=== PATIENT | male | born 1955 | race African-American/Black ===

== ENCOUNTER 2016-10-08 18:59 | Emergency (ER) | payer OTHER ==
[2016-10-08 19:13] VITALS: BP 157/066
--- NOTE | 2016-10-08 19:26 | PROVIDER DOCUMENTATION ---
HPI-EENT General - General Chief Complaint: Eye Complaint Stated Complaint: PINK EYE Time Seen by Provider: 10/08/16 19:15 Source: patient Allergies/Adverse Reactions: Patient Allergies Allergy/AdvReac Type Severity Reaction Status Date / Time No Known Allergies Allergy Verified 04/30/14 07:42 Home Medications: Home Medication List Medication Instructions Recorded Confirmed Last Taken Type Glipizide [Glipizide Xl] 2.5 mg PO DAILY 07/07/12 04/30/14 08/28/13 09:30 History 11 Hydralazine [Apresoline] 100 mg PO BID 07/07/12 04/30/14 08/28/13 18:30 History 1 Metformin [Glucophage] 1,000 mg PO BID 07/07/12 04/30/14 08/28/13 18:30 History 1 Clopidogrel [Plavix] 75 mg PO DAILY #0 tablet 12/03/12 04/30/14 08/20/13 09:30 Rx 1 Amlodipine/Valsartan [Exforge 1 each PO DAILY 08/19/13 04/30/14 08/28/13 09:30 History 10/320 mg Tablet] 1 Citalopram [Celexa] 20 mg PO DAILY 08/19/13 04/30/14 08/28/13 09:30 History 1 LISINOpril [Prinivil] 10 mg PO DAILY 08/19/13 04/30/14 08/28/13 09:30 History 1 PRAVAstatin [Pravachol] 40 mg PO DAILY 04/30/14 04/30/14 Unknown History Tramadol [Ultram] 50 mg PO Q8HR #20 tablet 08/31/15 Unknown Rx Amoxicillin [Amoxil] 500 mg PO BID #20 capsule 10/08/16 Unknown Rx Neomycin/Polymyxin/Hc Oph Susp 2 drop BOTH EYES TID #1 bottle 10/08/16 Unknown Rx [Cortisporin Oph Susp] - History of Present Illness-EENT General Nature of Presenting Problem: 61 y/o AAM c/o discharge from bilateral eyes for the past 2 days. Denies changes in vision or trauma, woke up with eyes matted shut. dnies pain in the eye. Has also had a sore throat and sinus pain for 2 days. Denies fevers. Eye surgery in Aug 2014 where he had his eye lid muscles tightened due to the eye lashes flipping inward towards the globe, no complications. EENT Location: reports: eye (R), eye (L) Quality of Pain: reports: none Onset/Duration: reports: 2 days ago Timing: reports: still present Prearrival Treatment: Initiated no prearrival treatment Associated Symptoms: reports: nasal congestion/drainage. denies: change in hearing, cough, drooling, ear drainage, facial pain/swelling, fever, malaise, poor fluid intake, poor solids intake, sinus infection, sore throat, tooth pain , voice change Similar Symptoms Previously?: No Recently seen or treated by another doctor?: No Review of Systems - Adult - REVIEW OF SYSTEMS - ADULT Constitutional: reports: no symptoms reported. denies: chills, fever, fatique Eyes: reports: see HPI, discharge, redness. denies: decreased vision, blurred vision, double vision, eye pain Ears, Nose, Mouth & Throat: reports: no symptoms reported. denies: ear pain, nose pain, throat pain Cardiovascular: reports: no symptoms reported. denies: chest pain Respiratory: reports: no symptoms reported. denies: cough, shortness of breath , wheezing Gastrointestinal: reports: no symptoms reported. denies: abdominal pain, diarrhea, nausea Genitourinary: reports: no symptoms reported Musculoskeletal: reports: no symptoms reported. denies: back pain Integumentary: reports: no symptoms reported. denies: rash Neurological: reports: no symptoms reported. denies: headache/migraines Psychiatric: reports: no symptoms reported Endocrine: reports: no symptoms reported Hematologic/Lymphatic: reports: no symptoms reported Allergic/Immunologic: reports: no symptoms reported All Other Systems: Reviewed and Negative Past History - Adult - PAST MEDICAL HISTORY-ADULT Review of Records: reports: Old Records Reviewed, Nursing Assessment Review, Medications Reviewed, Social history reviewed & non-contributory. Major Childhood Illnesses: reports: denies history Cardiovascular: reports: cardiac disease, HTN, hyperlipidemia Respiratory: reports: other (sleep apnea) Gastrointestinal: reports: denies history Obstetrical/Gynecological: reports: denies history Genitourinary: reports: denies history Musculoskeletal: reports: denies history Neurological: reports: CVA Psychiatric: reports: denies history Endocrine/Immune: reports: Diabetes Other Conditions: reports: denies history - PRIOR SURGERIES/PROCEDURES Surgical/Procedure History: reports: tonsillectomy - PRIOR HOSPITALIZATIONS Prior Hospitalizations: reports: none - IMMUNIZATION STATUS Childhood Immunizations: See Nurse Assessment Flu Vaccine: See Nurse Assessment - FAMILY HISTORY Family History: reviewed, not pertinent - SOCIAL HISTORY Smoking: denies Substance Use: none/never Alcohol Use Frequency: never Physical Exam- EENT - Physical Exam EENT Initial Vital Signs Reviewed: Yes General Appearance: appears well, alert, no apparent distress Eye Exam: bilateral eye: PERRL, conjunctival inflammation, other (purulent drainage both eyes) Ear Exam: bilateral ear: auricle normal, canal normal, TM normal Neck: non-tender, full range of motion, supple, normal inspection. negative: lymphadenopathy Respiratory: chest non-tender, lungs clear, normal breath sounds, no pleuratic chest pain, no respiratory distress, no accessory muscle use. negative: respiratory distress, decreased breath sounds, accessory muscle use, crackles, rales, rhonchi, wheezing Cardiovascular: normal peripheral pulses, regular rate, rhythm Extremity: normal gait (walks with cane at baseline on the right) Neurologic: grossly normal, no motor/sensory deficits Psych/Mental Status: normal mood/affect, normal thought content, normal thought process, oriented x 3 Progress - PLAN OF CARE/RESULTS Progress/Plan/Lab Results: Vital Signs Temp Pulse Resp BP Pulse Ox 10/08/16 19:06 97.8 F 70 18 157/066 97 No Known Allergies Allergy (Verified 04/30/14 07:42) Glipizide [Glipizide Xl] 2.5 mg PO DAILY 07/07/12 Hydralazine [Apresoline] 100 mg PO BID 07/07/12 Metformin [Glucophage] 1,000 mg PO BID 07/07/12 Clopidogrel [Plavix] 75 mg PO DAILY #0 tablet 12/03/12 Amlodipine/Valsartan [Exforge 10/320 mg Tablet] 1 each PO DAILY 08/19/13 Citalopram [Celexa] 20 mg PO DAILY 08/19/13 LISINOpril [Prinivil] 10 mg PO DAILY 08/19/13 PRAVAstatin [Pravachol] 40 mg PO DAILY 04/30/14 Tramadol [Ultram] 50 mg PO Q8HR #20 tablet 08/31/15 Amoxicillin [Amoxil] 500 mg PO BID #20 capsule 10/08/16 Neomycin/Polymyxin/Hc Oph Susp [Cortisporin Oph Susp] 2 drop BOTH EYES TID #1 bottle 10/08/16 Departure - Departure Time of Disposition Order: 19:21 DIAGNOSIS: Bacterial conjunctivitis of both eyes, Sinusitis chronic, frontal Disposition: HOME 01 Certified Medical Emergency: Emergent Condition: Stable Additional Instructions: Follow up with the critical care technician. ED Follow Up Instructions: You have been treated by a care provider in the Emergency Department. These instructions are being provided to you so you can have an understanding of how to care for yourself upon discharge. Upon discharge from the Emergency Department, you are responsible for making arrangements for follow-up care by a physician of your choice. Take all prescribed medications as directed. Return to the Emergency Department immediately for any new or worsening symptoms. You may call the Physician Referral phone number at [phone] to obtain a list of Physicians who are taking new patients. Prescriptions: Amoxicillin [Amoxil] 500 mg PO BID #20 capsule Neomycin/Polymyxin/Hc Oph Susp [Cortisporin Oph Susp] 2 drop BOTH EYES TID #1 bottle Attestation - Physician/ JENNIFER Attestation Patient care was provided by Advanced Practice Provider:: Yes Advanced Practice Provider:: Miriam Webb Advanced Practice Provider documentation review:: The Mid-level provider documentation, treatment plan and medical decision making was reviewed by the physician who agrees with all treatment and medical decision making by the MLP.
== END 2016-10-08 19:40 | disposition home or self-care (01) ==
LOC: P.ED 18:59
DX: H10.023 Other mucopurulent conjunctivitis, bilateral (principal); J32.1 Chronic frontal sinusitis; R09.81 Nasal congestion; H57.8 Other specified disorders of eye and adnexa; I10 Essential (primary) hypertension; E78.5 Hyperlipidemia, unspecified; Z86.73 Personal history of transient ischemic attack (TIA), and cerebral infarction without residual deficits; E11.9 Type 2 diabetes mellitus without complications; Z79.899 Other long term (current) drug therapy; Z79.01 Long term (current) use of anticoagulants
CPT/HCPCS: 99281